=== PATIENT | male | born 1975 | race Caucasian/White ===

== ENCOUNTER 2022-02-26 13:04 | Emergency (ER) | payer OTHER, SELFPAY ==
--- NOTE | ~2022-02-26 | XR_ITS ---
EXAMINATION: XR FOOT, RIGHT CLINICAL INFORMATION: Right foot pain COMPARISON: None TECHNIQUE: AP, lateral, and oblique views of the right foot. FINDINGS: No fracture or dislocation. Alignment is anatomic. Joint spaces are maintained. Mild soft tissue swelling of the forefoot. No osseous erosion. No radiopaque foreign body. XR/XR foot RT 2V IMPRESSION: Mild soft tissue swelling of the forefoot. No acute osseous abnormality.
--- NOTE | ~2022-02-26 | XR_ITS ---
EXAMINATION: XR ANKLE, RIGHT CLINICAL INFORMATION: Injury. COMPARISON: Radiograph of the right foot earlier today. TECHNIQUE: AP, lateral, and mortise views of the right ankle. FINDINGS: Mild cortical irregularity of the medial malleolus, suspicious for fracture. The ankle mortise is maintained. Small plantar calcaneal spurs. Diffuse nonspecific soft tissue swelling. XR/XR ankle RT min 3V IMPRESSION: Subtle cortical irregularity/disruption of the medial malleolus suspicious for fracture. Recommend correlation with point tenderness.
[2022-02-26 13:08] VITALS: BP 116/78; PULSE 88; RESP 19; TEMP 36.9; O2SAT 96; BMI 27.1
[2022-02-26 15:21] VITALS: BP 99/63; PULSE 101; RESP 18; TEMP 36.8; O2SAT 94
--- NOTE | 2022-02-26 15:37 | ED.LOWEXIN ---
HPI - Extremity Injury (Lower) General Chief Complaint: Extremity Injury, Lower Stated Complaint: R ankle/foot inj Time Seen by Provider: 02/26/22 15:02 History of Present Illness HPI Narrative: Patient complains of right foot and ankle pain after trip and fall, patient can walk on it with a limp, there is no other injury no other complaints Related Data Previous Rx's Medication Instructions Recorded acetaminophen 500 mg tablet 1,000 mg PO QID PRN pain #30 tabs 02/26/22 ibuprofen 600 mg tablet 600 mg PO Q6H PRN pain #20 tabs 02/26/22 Allergies Allergy/AdvReac Type Severity Reaction Status Date / Time NKDA Allergy Unknown Uncoded 07/03/11 00:00 Review of Systems Review of Systems: Positive for right foot and ankle pain after a fall, negatives are no headache no head injury no dizziness no confusion no fainting no feeling faint no neck pain no numbness weakness or tingling no chest pain no back pain, no lacerations Yes all other systems are reviewed and are negative PMFSH Past Medical History Source: nursing notes reviewed Physical Exam Vital Signs: Vital Signs: Last Vital Signs Temp 98.3 F 02/26/22 15:21 Pulse 101 H 02/26/22 15:21 Resp 18 02/26/22 15:21 BP 99/63 02/26/22 15:21 Pulse Ox 94 02/26/22 15:21 O2 Del Method 02/26/22 15:21 BMI result Body Mass Index 27.1 General appearance no acute distress Head is normocephalic atraumatic Neck is supple nontender The back full range of motion Respiratory no distress Extremities the right foot and ankle are swollen, the foot is swollen along the dorsum of the foot there is ecchymosis, there is normal tendon function distal, skin is intact there are no lacerations, motor and sensory are normal in the distal foot and vascular intact Other extremities normal Course Course Course Narrative: X-rays of right foot and ankle did not reveal any fracture and patient was discharged to follow as needed with Orthopedics Discharge Plan Discharge Clinical Impression: Right foot sprain Patient Disposition: Home, Self-Care Additional Instructions: X-ray did not show any broken bones You likely have a sprained foot and the bruising is from broken vessels in the foot If not better follow with orthopedist next week Return any time any worse condition or any concerns Ice elevation Motrin or Tylenol as needed Prescriptions: New acetaminophen 500 mg tablet 1,000 mg PO QID PRN (Reason: pain) Qty: 30 0RF ibuprofen 600 mg tablet 600 mg PO Q6H PRN (Reason: pain) Qty: 20 0RF Referrals: Edmund Dumont MD [Physician] - (Right foot sprain) Interventions: ED Discharge Assessment Last Done: 02/26/22 16:23 Discharge Date/Time: 02/26/22 16:25
== END 2022-02-26 16:25 | disposition home or self-care (01) ==
PROVIDERS: Emergency Provider Student in an Organized Health Care Education/Training Program
DX: S93.601A Unspecified sprain of right foot, initial encounter (principal); W19.XXXA Unspecified fall, initial encounter; Y93.9 Activity, unspecified; Y92.9 Unspecified place or not applicable; Y99.9 Unspecified external cause status
CPT/HCPCS: 73610; 73620; 99282; 99283

== ENCOUNTER 2022-03-08 14:36 | Outpatient (REF) | payer OTHER, SELFPAY ==
--- NOTE | ~2022-03-08 | XR_ITS ---
EXAMINATION: XR ANKLE, RIGHT CLINICAL INFORMATION: Pain COMPARISON: Previous right ankle x-ray January 2022 TECHNIQUE: AP, lateral, and mortise views of the right ankle. FINDINGS: No definite acute fracture or dislocation. Well-corticated ossification adjacent to the medial malleolus likely related to old trauma. Normal ankle mortise. Small plantar calcaneal spur and soft tissue calcification. XR/XR ankle RT min 3V IMPRESSION: Normal right ankle.
--- NOTE | ~2022-03-08 | XR_ITS ---
EXAMINATION: XR FOOT, RIGHT CLINICAL INFORMATION: Right foot pain. COMPARISON: None TECHNIQUE: AP, lateral, and oblique views of the right foot. FINDINGS: The bones are normal. No fracture. Alignment is anatomic. Joint spaces are maintained. Linear soft tissue calcification is noted overlying the proximal plantar aspect of the calcaneus, most consistent with plantar fasciitis or tendinous calcification. XR/XR foot RT min 3V IMPRESSION: Linear calcifications along the proximal plantar aspect of the calcaneus, most consistent with plantar fasciitis or tendinous calcification.
== END 2022-03-08 14:37 | disposition home or self-care (01) ==
LOC: HO.HOSX 14:36
PROVIDERS: Visit Provider Orthopaedic Surgery
DX: M79.671 Pain in right foot (principal)
CPT/HCPCS: 73610; 73630; 99202

== ENCOUNTER → 2022-03-22 14:16 | Outpatient (BNVA) | payer OTHER, SELFPAY | PROVIDERS: Visit Provider Physician Assistant | DX: S99.911D Unspecified injury of right ankle, subsequent encounter (principal); S99.921D Unspecified injury of right foot, subsequent encounter; M72.2 Plantar fascial fibromatosis; X58.XXXD Exposure to other specified factors, subsequent encounter | CPT/HCPCS: 99212 ==